=== PATIENT | female | born 1960 | race Caucasian/White ===

== ENCOUNTER → 2020-12-28 13:25 | Outpatient (BNVA) | payer OTHER, SELFPAY | PROVIDERS: Visit Provider Obstetrics & Gynecology | DX: Z12.4 Encounter for screening for malignant neoplasm of cervix (principal) | CPT/HCPCS: 88175 ==

== ENCOUNTER → 2021-01-16 09:09 | Outpatient (BNVA) | payer OTHER, SELFPAY | PROVIDERS: Visit Provider Podiatrist Foot & Ankle Surgery | DX: M79.671 Pain in right foot (principal); M79.672 Pain in left foot; M21.42 Flat foot [pes planus] (acquired), left foot; M21.41 Flat foot [pes planus] (acquired), right foot; M77.32 Calcaneal spur, left foot; M77.31 Calcaneal spur, right foot; M19.072 Primary osteoarthritis, left ankle and foot | CPT/HCPCS: 73610; 73630 ==

== ENCOUNTER 2021-02-06 13:41 | Outpatient (CLI) | payer OTHER, SELFPAY ==
--- NOTE | 2021-02-06 14:00 | MM_ITS ---
WS: [id number] BILATERAL DIGITAL SCREENING MAMMOGRAPHY WITH CAD CLINICAL INFORMATION: Z12.39 - Encounter for other screening for malignant neoplasm of breast HISTORY: Screening mammogram. No current complaints. COMPARISON: TECHNIQUE: Bilateral CC and MLO views. FINDINGS: The breasts are composed of heterogeneous fibroglandular density tissue, which can limit the detectio n of small underlying mass lesions. No suspicious mass, asymmetry, calcifications, or architectural d istortion. No evidence of malignancy. Punctate and lucent centered calcifications. MM/[id number] IMPRESSION: BI-RADS: 2-Benign FOLLOW UP: 1 Year Follow-up Recommend return to annual screening mammography.
== END 2021-02-06 13:42 | disposition home or self-care (01) ==
LOC: RADSHAW 13:45
PROVIDERS: Visit Provider Obstetrics & Gynecology
DX: Z12.31 Encounter for screening mammogram for malignant neoplasm of breast (principal)
CPT/HCPCS: 77067

== ENCOUNTER 2025-08-12 15:08 | Outpatient (CLI) | payer SELFPAY ==
[2025-08-12 15:52] LABS: HF Add Manual Diff No
[2025-08-12 15:56] LABS: Hematocrit 45.3 % (36-47); Hemoglobin 15.20 g/dL (11.27-16.99); Mean Corpuscular HGB Conc 33.6 g/dL (30-55); Mean Corpuscular Hemoglobin 29.7 pg (27-33); Mean Corpuscular Volume 88.5 fl (85-98); Nucleated Red Blood Cells % 0 %; Platelet Count 240 10^3/cmm (157-399); Red Blood Count 5.12 10^6/uL (3.85-5.65); White Blood Count 8.45 10^3/uL (3.29-11.43)
[2025-08-12 16:06] LABS: Estmated Average Glucose 120; Hemoglobin A1C 5.8 % (4.0-6.0)
[2025-08-12 16:50] LABS: Alanine Aminotransferase 24 U/L (0-33); Albumin Level 4.1 g/dL (3.5-5.2); Alkaline Phosphatase 87 U/L (35-105); Anion Gap 15.1 (5-19); Aspartate Amino Transferase 25 U/L (0-32); Blood Urea Nitrogen 17 mg/dL (8-23); Calcium 9.0 mg/dL (8.5-10.5); Carbon Dioxide 26 mmol/L (22-29); Chloride 105 mmol/L (98-107); Cholesterol 193 mg/dL (0-200); Globulin 3.1 g/dL (1.3-4.6); Glucose 90 mg/dL (65-115); HDL Cholesterol 40 mg/dL (60-100); Osmolality Calculated 295 mOsm/kg (285-295); Potassium 4.1 mmol/L (3.5-5.1); Sodium 142 mmol/L (136-145); Thyroid Stimulating Hormone 0.28 uIU/mL (0.27-4.20); Total Protein 7.2 g/dL (6.6-8.7); Triglycerides 171 mg/dL (0-150)
== END 2025-08-12 15:09 | disposition home or self-care (01) ==
PROVIDERS: Visit Provider Dermatology
DX: Z01.89 Encounter for other specified special examinations (principal)
CPT/HCPCS: 36415